=== PATIENT | female | born 2000 ===

== ENCOUNTER → 2024-03-07 15:06 | Outpatient (REF) | payer OTHER, SELFPAY | LOC: RAD 15:06 | PROVIDERS: ATTENDING PHYSICIAN Internal Medicine; FAMILY PHYSICIAN Internal Medicine | DX: R19.8 Other specified symptoms and signs involving the digestive system and abdomen (principal); R68.81 Early satiety; R15.2 Fecal urgency; R14.0 Abdominal distension (gaseous) | CPT/HCPCS: 74019 ==